=== PATIENT | female | born 1995 | race Caucasian/White ===

== ENCOUNTER 2016-11-08 11:52 | Emergency (ER) | payer MEDICAID ==
[~2016-11-08] VITALS: Ht 172.7 cm; Wt 77.1 kg
[2016-11-08 12:57] LABS: Urine Bilirubin Negative (Negative); Urine Blood Negative /uL (Negative); Urine Color Yellow (Yellow); Urine Glucose Normal (Normal); Urine Ketone Negative (Negative); Urine Mucus MODERATE (None Seen); Urine Nitrite Negative (Negative); Urine RBC <1 /hpf (0 - 4); Urine Squamous Epithelial Cell FEW /hpf (<5); Urine Urobilinogen Normal (Negative)
[2016-11-08 13:00] LABS: Basophils # (auto) 0 uL; Basophils % (auto) 0.3 % (0.0-2.0); Eosinophils # (auto) 0 uL; Eosinophils % (auto) 0.4 % (0.0-7.0); Hematocrit 41.5 % (36.0-46.0); Hemoglobin 13.7 g/dL (12.2-16.2); Lymphocytes # (auto) 2.1 uL; Lymphocytes % (auto) 25.4 % (10.0-50.0); Mean Corpuscular Hemoglobin 29.3 pg (28.0-32.0); Mean Corpuscular Hgb Conc. 33.1 g/dL (32.0-36.0); Mean Corpuscular Volume 88.6 fL (80.0-100.0); Mean Platelet Volume 8.5 fL (7.4-10.4); Monocytes # (auto) 0.6 uL; Monocytes % (auto) 6.6 % (0.0-12.0); Neutrophils # (auto) 5.7 uL; Neutrophils % (auto) 67.3 % (37.0-80.0); Platelet Count (auto) 305 10^3/uL (140-450); Red Cell Distribution Width 13.8 % (11.6-16.0); White Blood Cell 8.4 10^3/uL (4.4-10.8)
[2016-11-08 13:58] LABS: Albumin 3.9 g/dL (3.4-5.0); BUN/Creatinine Ratio 20.3; Bilirubin, Total 0.3 mg/dL (0.2-1.0); Potassium 4.3 mmol/L (3.5-5.1); Total Protein 7.5 g/dL (6.4-8.2)
[2016-11-08 14:38] VITALS: BP 134/87
== END 2016-11-08 16:45 | disposition home or self-care (01) ==
LOC: ER 11:52
DX: N39.0 Urinary tract infection, site not specified (principal)
CPT/HCPCS: 36415; 80053; 81001; 84702; 85025

== ENCOUNTER 2018-03-21 00:16 | Emergency (ER) | payer SELFPAY ==
[~2018-03-21] VITALS: Ht 175.3 cm; Wt 89.8 kg
[2018-03-21 01:56] LABS: Basophils # (auto) 0 uL; Basophils % (auto) 0.5 % (0.0-2.0); Eosinophils % (auto) 0.5 % (0.0-7.0); Hemoglobin 10.9 g/dL (12.2-16.2); Neutrophils # (auto) 7.6 uL
[2018-03-21 01:57] LABS: Eosinophils # (auto) 0.1 uL; Hematocrit 33.6 % (36.0-46.0); Lymphocytes % (auto) 19.1 % (10.0-50.0); Mean Corpuscular Hemoglobin 29.1 pg (28.0-32.0); Mean Corpuscular Hgb Conc. 32.5 g/dL (32.0-36.0); Mean Corpuscular Volume 89.3 fL (80.0-100.0); Monocytes # (auto) 0.6 uL; Neutrophils % (auto) 73.9 % (37.0-80.0); Red Blood Cells 3.76 10^6/uL (4.0-5.20); Red Cell Distribution Width 14.1 % (11.8-14.3); White Blood Cell 10.2 10^3/uL (4.4-10.8)
[2018-03-21 01:58] LABS: Platelet Count (auto) 518 10^3/uL (140-450)
[2018-03-21 02:12] LABS: Potassium 4.2 mmol/L (3.5-5.1)
[2018-03-21 02:15] LABS: Albumin 3.7 g/dL (3.4-5.0); BUN/Creatinine Ratio 11.1; Calcium 8.3 mg/dL (8.5-10.1)
[2018-03-21 02:18] LABS: Bilirubin, Total 0.3 mg/dL (0.2-1.0)
[2018-03-21 03:56] LABS: Urine Bacteria FEW /hpf (None Seen); Urine Blood 2+ /uL (Negative); Urine Mucus FEW (None Seen); Urine Specific Gravity 1.024 (1.001-1.035); Urine WBC 187 /hpf (0 - 5)
[2018-03-21 04:14] VITALS: BP 140/78
== END 2018-03-21 04:27 | disposition home or self-care (01) ==
LOC: ER 00:18
DX: N39.0 Urinary tract infection, site not specified (principal); N93.9 Abnormal uterine and vaginal bleeding, unspecified
CPT/HCPCS: 36415; 80053; 81001; 84702; 85025

== ENCOUNTER 2021-05-03 18:21 | Emergency (ER) | payer MEDICAID, OTHER ==
[~2021-05-03] VITALS: Ht 175.3 cm; Wt 81.6 kg
[2021-05-03 22:17] VITALS: BP 149/98
== END 2021-05-03 23:03 | disposition home or self-care (01) ==
LOC: ER 18:23
DX: T74.21XA Adult sexual abuse, confirmed, initial encounter (principal); F43.9 Reaction to severe stress, unspecified; R42 Dizziness and giddiness; F10.129 Alcohol abuse with intoxication, unspecified; Y90.9 Presence of alcohol in blood, level not specified